=== PATIENT | male | born 1995 | race Caucasian/White ===

== ENCOUNTER 2017-04-18 20:01 | Emergency (ER) | payer BC ==
[~2017-04-18] VITALS: Ht 177.8 cm; Wt 60.1 kg
[~2017-04-18 20:01] MED LIST: BUPR75TA20 PO; CLRUNK PO; CNC/18 PO; FLUO40CA8 PO; SNG10 PO
[2017-04-18 20:05] VITALS: Ht 177.8 cm; Wt 60.1 kg
[2017-04-18] MEDS ORDERED: DICYCLOMINE HCL 20 MG TAB PO STA (20:32)
[2017-04-18] MEDS ORDERED: FAMOTIDINE 20 MG TAB PO ONE (20:45)
[2017-04-18 20:51] LABS: BASO % 0.4 %; BASO ABS # 0.04 K/uL (0-0.2); COMPLETE YES; EOS % 0.8 %; IG% 0.1 %; MEAN CELL VOLUME 85.1 fL (80-100); MEAN CORPUSCULAR HEMOGLOBIN 29.2 pg (25-34); MEAN CORPUSCULAR HGB CONC 34.3 g/dl (32-36); MEAN PLATELET VOLUME 9.6 fL (7.4-10.4); MONO % 8.7 %; PLATELET COUNT 361 K/uL (130-400); RED BLOOD COUNT 5.17 M/uL (4.7-6.1); WHITE BLOOD COUNT 9.15 K/uL (4.8-10.8)
[2017-04-18 20:58] LABS: BUN/CREATININE RATIO 14.2 (10-20); CALCIUM 9.2 mg/dl (8.5-10.1)
[2017-04-18] MEDS ORDERED: LORA10TA5 PO (20:58)
[2017-04-18] MEDS ORDERED: BUPR100T13 PO (21:01)
[2017-04-18 21:02] LABS: ALB/GLOB RATIO 1.6 (0.9-2)
--- NOTE | 2017-04-18 21:34 | DIAGNOSTIC IMAGING REPORT ---
ABDOMEN 2VIEW W/PA CHEST RTN CLINICAL HISTORY: abd pain COMPARISON STUDY: No previous studies for comparison. FINDINGS: The soft tissues, psoas shadows, renal outlines and intestinal gas pattern appear normal. There is no evidence for bowel obstruction. There is no evidence for free intraperitoneal air. No abnormal abdominal calcifications are seen. A frontal view of the chest was performed and is unremarkable. IMPRESSION: Normal study. Electronically signed by: Tesfaye Mcdonald M.D. 04/18/2017 9:33 PM Dictated Date/Time: 04/18/2017 9:32 PM
--- NOTE | 2017-04-18 21:48 | EMERGENCY ROOM VISIT NOTE ---
History Report prepared by Kendal: Lizett Amaya Under the Supervision of: Dr. Tammy Mcdaniels D.O. First contact with patient: 20:14 Chief Complaint: ABDOMINAL PAIN Stated Complaint: ABD PAIN Nursing Triage Summary: pt reports while working started with severe abdominal pain , pt denies NV at this time History of Present Illness The patient is a 21 year old male who presents to the Emergency Room with complaints of persistent abdominal pain starting this morning. The pain started suddenly and started in his left side. It moved into his mid abdomen and up into his ribcage through the day. He describes the pain as sharp. At first his pain was a 7/10 in severity. He currently rates his discomfort as a 5/10 in severity. He has had abdominal before, but not this severely. His stools have been looser than usual recently. He denies any bloody stools, fevers, chills, back pain, nausea, vomiting, diarrhea, constipation, urinary symptoms, or SOB. He notes that he ate 5 chocolate bars yesterday. He denies any trauma or injury to his abdomen. He has a history of IBS as does his mother. Source of History: patient Onset: this morning Position: abdomen Symptom Intensity: 7/10 Quality: sharp Timing: other (persistent) Associated Symptoms: No fevers, No chills, No SOB, No nausea, No vomiting, No back pain, No hematochezia, No diarrhea, No urinary symptoms Note: Pt reports looser stools. Pt denies constipation. Review of Systems See HPI for pertinent positives & negatives. A total of 10 systems reviewed and were otherwise negative. Past Medical & Surgical Medical Problems: (1) IBS (irritable bowel syndrome) Family History Diabetes mellitus FHx: cancer Heart disease Kidney disease Kidney stones Seizures Social History Smoking Status: Current Every Day Smoker Marital Status: single Occupation Status: employed Current/Historical Medications Scheduled Bupropion Hcl (Wellbutrin), 50 MG PO DAILY Scheduled PRN Loratadine (Claritin), 10 MG PO DAILY PRN for Allergy Symptoms Allergies Coded Allergies: Lamotrigine (Unverified Adverse Reaction, Severe, HALLUCINATIONS, 04/25/16) Uncoded Allergies: NKA (Allergy, Unknown, 09/11/05) Physical Exam Vital Signs Date Time Temp Pulse Resp B/P (MAP) Pulse Ox O2 Delivery O2 Flow Rate FiO2 04/18/17 23:02 36.7 66 16 126/69 99 04/18/17 21:56 66 16 126/69 99 04/18/17 20:05 36.7 94 20 128/83 98 Room Air Physical Exam GENERAL: alert, well appearing, well nourished, no distress, non-toxic EYE EXAM: normal conjunctiva, PERRL and EOM's grossly intact OROPHARYNX: no exudate, no erythema, lips, buccal mucosa, and tongue normal and mucous membranes are moist NECK: supple, no nuchal rigidity, no adenopathy, non-tender LUNGS: Clear to auscultation. Normal chest wall mechanics HEART: no murmurs, S1 normal and S2 normal ABDOMEN: abdomen soft, non-tender, normo-active bowel sounds, no masses, no rebound or guarding. BACK: Back is symmetrical on inspection and there is no deformity, no midline tenderness, no CVA tenderness. SKIN: no rashes and no bruising UPPER EXTREMITIES: upper extremities are grossly normal. LOWER EXTREMITIES: No pitting edema. NEURO EXAM: Normal sensorium, cranial nerves II-XII grossly intact, normal speech, no gross weakness of arms, no gross weakness of legs. Medical Decision & Procedures ER Provider Diagnostic Interpretation: Xray results have been interpreted by the radiologist and me. ABDOMEN 2VIEW W/PA CHEST RTN CLINICAL HISTORY: abd pain COMPARISON STUDY: No previous studies for comparison. FINDINGS: The soft tissues, psoas shadows, renal outlines and intestinal gas pattern appear normal. There is no evidence for bowel obstruction. There is no evidence for free intraperitoneal air. No abnormal abdominal calcifications are seen. A frontal view of the chest was performed and is unremarkable. IMPRESSION: Normal study. Electronically signed by: Tesfaye Mcdonald M.D. 04/18/2017 9:33 PM Dictated Date/Time: 04/18/2017 9:32 PM Laboratory Results 04/18/17 20:18 Red Blood Count 5.17, Mean Corpuscular Volume 85.1, Mean Corpuscular Hemoglobin 29.2, Mean Corpuscular Hemoglobin Concent 34.3, Mean Platelet Volume 9.6, Neutrophils (%) (Auto) 66.0, Lymphocytes (%) (Auto) 24.0, Monocytes (%) (Auto) 8.7, Eosinophils (%) (Auto) 0.8, Basophils (%) (Auto) 0.4, Neutrophils # (Auto) 6.03, Lymphocytes # (Auto) 2.20, Monocytes # (Auto) 0.80, Eosinophils # (Auto) 0.07, Basophils # (Auto) 0.04 04/18/17 20:18 Test 04/18/17 20:18 White Blood Count 9.15 K/uL (4.8-10.8) Red Blood Count 5.17 M/uL (4.7-6.1) Hemoglobin 15.1 g/dL (14.0-18.0) Hematocrit 44.0 % (42-52) Mean Corpuscular Volume 85.1 fL (80-100) Mean Corpuscular Hemoglobin 29.2 pg (25-34) Mean Corpuscular Hemoglobin Concent 34.3 g/dl (32-36) Platelet Count 361 K/uL (130-400) Mean Platelet Volume 9.6 fL (7.4-10.4) Neutrophils (%) (Auto) 66.0 % Lymphocytes (%) (Auto) 24.0 % Monocytes (%) (Auto) 8.7 % Eosinophils (%) (Auto) 0.8 % Basophils (%) (Auto) 0.4 % Neutrophils # (Auto) 6.03 K/uL (1.4-6.5) Lymphocytes # (Auto) 2.20 K/uL (1.2-3.4) Monocytes # (Auto) 0.80 K/uL (0.11-0.59) Eosinophils # (Auto) 0.07 K/uL (0-0.5) Basophils # (Auto) 0.04 K/uL (0-0.2) RDW Standard Deviation 41.1 fL (36.4-46.3) RDW Coefficient of Variation 13.3 % (11.5-14.5) Immature Granulocyte % (Auto) 0.1 % Immature Granulocyte # (Auto) 0.01 K/uL (0.00-0.02) Anion Gap 10.0 mmol/L (3-11) Est Creatinine Clear Calc Drug Dose 101.0 ml/min Estimated GFR () 125.9 Estimated GFR (Non- 108.6 BUN/Creatinine Ratio 14.2 (10-20) Calcium Level 9.2 mg/dl (8.5-10.1) Total Bilirubin 1.9 mg/dl (0.2-1) Aspartate Amino Transf (AST/SGOT) 12 U/L (15-37) Alanine Aminotransferase (ALT/SGPT) 20 U/L (12-78) Alkaline Phosphatase 66 U/L (45-117) Total Protein 7.7 gm/dl (6.4-8.2) Albumin 4.7 gm/dl (3.4-5.0) Globulin 3.0 gm/dl (2.5-4.0) Albumin/Globulin Ratio 1.6 (0.9-2) Lipase 82 U/L (73-393) Laboratory results per my review. Medications Administered Medications (Trade) Dose Ordered Sig/Jory Route Start Time Stop Time Status Last Admin Dose Admin Famotidine (Pepcid Tab) 20 mg NOW ONCE PO 04/18/17 20:45 04/18/17 20:46 DC 04/18/17 20:49 20 MG Dicyclomine HCl (Bentyl Tab) 20 mg NOW STAT PO 04/18/17 20:32 04/18/17 20:38 DC 04/18/17 20:49 20 MG ED Course 2014: The patient was seen by the student at this time. We discussed findings, differentials, and the treatment plan. 2031: Bentyl Tab 20 mg PO. 2044: Famotidine 20 mg PO. 2136: The patient was evaluated in room A2. A complete history and physical exam was performed. 2144: Upon reevaluation, the patient is feeling better. I discussed the findings and the treatment plan with the patient. He verbalizes agreement and understanding. He was discharged home. Medical Decision Differential diagnosis: Etiologies such as appendicitis, diverticulitis, PUD, biliary pathology, UTI, pancreatitis, obstruction, mesenteric ischemia, aortic pathology, infections, inflammatory bowel disease, renal colic, as well as others were entertained. Medication Reconciliation: I attest that I have personally reviewed the patient' s current medication list. Blood pressure screening: Patient was found to have a slightly elevated blood pressure due to circumstances. I do not believe that the patient requires hypertension monitoring. Pt sx improving by time of my evaluation. Gone after additional meds. Labs and imaging reassuring. Pt well appearing, stable VS. Discussed possible ddx, sx to watch/return for, he verbalized understanding and was agreeable with plan. Impression Primary Impression: Abdominal pain Scribe Attestation The scribe's documentation has been prepared under my direction and personally reviewed by me in its entirety. I confirm that the note above accurately reflects all work, treatment, procedures, and medical decision making performed by me. Departure Information Dispostion Home / Self-Care Patient Instructions [facility] Additional Instructions Please continue regular medications as prescribed. Please eat and drink regularly and stay well-hydrated. Please call and follow up with your family doctor. One of your liver numbers was very mildly elevated. This may be due to medications. Please have your family doctor recheck these numbers. If you develop any recurrent abdominal pain, develop vomiting, fevers, noticed a change in your stools, or you have any other new concerns, please return the emergency room. Problem Qualifiers Primary Impression: Abdominal pain Abdominal location: generalized Qualified Codes: R10.84 - Generalized abdominal pain
[2017-04-18 23:02] VITALS: BP 126/69; PULSE 66; TEMP 36.7; O2SAT 99
== END 2017-04-18 23:03 | disposition home or self-care (01) ==
LOC: C.EDB 20:02 → C.EDA 23:03
DX: R10.84 Generalized abdominal pain (principal); F17.200 Nicotine dependence, unspecified, uncomplicated; Z83.79 Family history of other diseases of the digestive system; Z83.3 Family history of diabetes mellitus; Z84.1 Family history of disorders of kidney and ureter; Z82.0 Family history of epilepsy and other diseases of the nervous system